=== PATIENT | female | born 1985 | race Caucasian/White ===

== ENCOUNTER 2018-11-08 10:09 | Inpatient (IN) | payer MEDICAID ==
[2018-11-08] VITALS (8 sets, daily range): BP systolic 122–149; BP diastolic 72–118
[~2018-11-08] VITALS: Ht 170.2 cm; Wt 147.1 kg
[2018-11-08] MEDS ORDERED: BUSP15 PO (17:26)
[2018-11-08] MEDS ORDERED: QUET100T PO (17:26)
[2018-11-08] MEDS ORDERED: GuaiFENesin/D-METHORPHAN [SUGAR-FREE] 200-20MG/10 ML SYRUP UDCUP PO PRN ×3 (17:45→21:15)
[2018-11-08] MEDS ORDERED: ZOLPIDEM TARTRATE 10 MG TABLET PO PRN (17:45)
[2018-11-08] MEDS ORDERED: LOPERAMIDE HCL 2 MG CAPSULE PO PRN ×3 (17:45→21:15)
[2018-11-08] MEDS ORDERED: CYANOCOBALAMIN 1,000 MCG/ML VIAL IM ONE (17:45)
[2018-11-08] MEDS ORDERED: HydrOXYzine PAMOATE 50 MG CAPSULE PO PRN (17:45)
[2018-11-08] MEDS ORDERED: HALOPERIDOL 5 MG TABLET PO PRN (17:45)
[2018-11-08] MEDS ORDERED: LORazepam 2 MG TABLET PO PRN (17:45)
[2018-11-08] MEDS ORDERED: PNEUMOCOCCAL VACCINE POLYVALENT 0.5 ML VIAL [PPSV23] IM ONE (19:00)
[2018-11-08] MEDS ORDERED: ALBUTEROL SULFATE HFA 90 MCG/PUFF 8 GM INHALER IH PRN ×2 (19:30→21:15)
[2018-11-08] MEDS ORDERED: ACETAMINOPHEN 325 MG TABLET PO PRN ×2 (19:30→21:15)
[2018-11-08] MEDS ORDERED: CloNIDine HCL 0.1 MG TABLET PO PRN ×2 (19:30→21:15)
[2018-11-08] MEDS ORDERED: MAGNESIUM HYDROXIDE SUSPENSION 30 ML UDCUP PO PRN ×2 (19:30→21:15)
[2018-11-08] MEDS ORDERED: DOCUSATE SODIUM 100 MG CAPSULE PO PRN ×2 (19:30→21:15)
[2018-11-08] MEDS ORDERED: MAG HYDROX/AL HYDROX/SIMETH ES 30 ML SUSPENSION UDCUP PO PRN ×2 (19:30→21:15)
[2018-11-08] MEDS ORDERED: IBUPROFEN 400 MG TABLET PO PRN ×2 (19:30→21:15)
[2018-11-08] MEDS ORDERED: ONDANSETRON HCL 4 MG TABLET PO PRN ×2 (19:30→21:15)
[2018-11-08] MEDS ORDERED: PETROLATUM,WHITE 28 GM JELLY TP PRN ×2 (19:30→21:15)
[2018-11-08] MEDS ORDERED: NICOTINE 14 MG/24 HOUR PATCH TD PRN ×2 (19:30→21:15)
[2018-11-08] MEDS: THIAMINE HCL 100 MG TABLET PO SCH (19:32)
[2018-11-08] MEDS ORDERED: AmLODIPine BESYLATE 2.5 MG TABLET PO ONE (22:15)
[2018-11-09 00:12] VITALS: BP 106/78
[2018-11-09 02:00] VITALS: BP 110/81
[2018-11-09 06:00] VITALS: BP 123/76
[2018-11-09] MEDS ORDERED: LORazepam 2 MG TABLET PO PRN (07:00)
[2018-11-09] MEDS: THIAMINE HCL 100 MG TABLET PO SCH (08:41)
[2018-11-09 08:43] VITALS: BP 117/62
[2018-11-09] MEDS ORDERED: FOLIC ACID 1 MG TABLET PO SCH (09:00)
[2018-11-09] MEDS ORDERED: LORazepam 2 MG TABLET PO SCH (09:00)
[2018-11-09] MEDS ORDERED: MULTIVITAMINS WITH MINERALS, THERAPEUTIC TABLET PO SCH (09:00)
[2018-11-09 11:37] VITALS: BP 121/102
[2018-11-11] MEDS ORDERED: LORazepam 1 MG TABLET PO PRN (07:00)
[2018-11-11] MEDS ORDERED: LORazepam 1 MG TABLET PO SCH (09:00)
[2018-11-12] MEDS ORDERED: LORazepam 1 MG TABLET PO PRN (07:00)
== END 2018-11-09 12:52 | disposition home or self-care (01) | DRG 756 ==
LOC: B2S 17:38 → B2X 21:00
PROVIDERS: ADMIT Psychiatry & Neurology Psychiatry; ATTEND Psychiatry & Neurology Psychiatry
DX: F99 Mental disorder, not otherwise specified (principal); G40.909 Epilepsy, unspecified, not intractable, without status epilepticus; F10.20 Alcohol dependence, uncomplicated; F32.9 Major depressive disorder, single episode, unspecified; I10 Essential (primary) hypertension; Z91.5 Personal history of self-harm; F41.9 Anxiety disorder, unspecified
CPT/HCPCS: 87081; 90732; J3420